=== PATIENT | female | born 1930 | race Caucasian/White ===

== ENCOUNTER → 2017-05-14 | Outpatient (CLI) | payer MEDICARE ==
[~2017-05-14] MED LIST: AMINOPHYLLINE 250 MG/10 ML VIAL. ONE; REGADENOSON 0.4 MG/5 ML DISP.SYRIN. IV ONE
--- NOTE | 2017-05-14 11:40 | PCVCIMAG ---
APPROVED REPORT Study performed: 05/14/2017 07:40:00 EXAM: Comprehensive 2D, Doppler, and color-flow Echocardiogram Patient Location: Echo lab Status: routine BSA: 1.63 HR: 71 bpmBP: 150/78 mmHg Rhythm: NSR Other Information Study Quality: Adequate Risk Factors: Cardiac Risk Factors: HTN Indications Dyspnea 2D Dimensions LVEF(%): 55.20 (>50%) IVSd: 6.47 (7-11mm) LVDd: 45.38 mm PWd: 7.90 (7-11mm) LVDs: 32.41 (25-40mm) Left Atrium: 29.22 (27-40mm) Aortic Root: 34.25 mm LV Single Plane 4CH: 60.87 % LV Single Plane 2CH: 63.59 %Servin's LVEF: 62.23 % Biplane EF: 61.5 % Volumes Left Atrial Volume (Systole) Single Plane 4CH: 48.38 mLSingle Plane 2CH: 59.61 mL LA ESV Index: 34.00 mL/m2 Aortic Valve AoV Peak Alberto.: 1.67 m/s AO Peak Gr.: 11.11 mmHgLVOT Max P.02 mmHg LVOT Max V: 1.32 m/s AI Vmax: 5.11 m/s AI [place]: 4.29 m/s2 AI PHT: 346.63 ms Mitral Valve E/A Ratio: 0.9 MV Decel. Time: 255.35 ms MV E Max Alberto.: 0.51 m/s MV A Alberto.: 0.60 m/s IVRT: 128.03 ms TDI E/Lateral E': 9.00E/Medial E': 8.00 Pulmonary Valve PV Peak Alberto.: 0.96 m/sPV Peak Gr.: 3.69 mmHg Pulmonary Vein P Vein S: 0.26 m/sP Vein A: 0.35 m/s P Vein D: 0.39 m/sP Vein A Dur.: 110.7 msec P Vein S/D Ratio: 0.67 Tricuspid Valve TR Peak Alberto.: 2.46 m/s TR Peak Gr.: 24.26 mmHg Left Ventricle The left ventricle is normal size. There is normal LV segmental wall motion. There is normal left ventricular wall thickness. Left ventricular systolic function is normal. The left ventricular ejection fraction is within the normal range. LVEF is 60-65%. Grade I - abnormal relaxation pattern. Right Ventricle The right ventricle is normal size. The right ventricular systolic function is normal. Atria The left atrium size is normal. The right atrium size is normal. Aortic Valve The aortic valve is normal in structure. Moderate aortic regurgitation. There is no aortic valvular stenosis. Mitral Valve The mitral valve is normal in structure. Mild mitral regurgitation. No evidence of mitral valve stenosis. Tricuspid Valve The tricuspid valve is normal in structure. Trace tricuspid regurgitation with PAP of 31 mmHg. Pulmonic Valve The pulmonary valve is normal in structure. Trace pulmonic valvular regurgitation. Great Vessels The aortic root is normal in size. IVC is normal in size and collapses with >50% inspiration Pericardium There is no pericardial effusion. <Conclusion> The left ventricle is normal size. Left ventricular systolic function is normal. Grade I - abnormal relaxation pattern. The right ventricle is normal size. The left atrium size is normal. Moderate aortic regurgitation. Mild mitral regurgitation. Trace tricuspid regurgitation with PAP of 31 mmHg.
--- NOTE | 2017-05-14 16:11 | PCVCIMAG ---
APPROVED REPORT Exam: Nuclear Stress Test Indication: Dyspnea, Abn EKG, Weakness Patient Location: Out-Patient Stress Nurse: Emilie Pino RN, Molly Veliz RN [place] Tech:Reuben LouieNICOLETCB Ht: 5 ft 3 in Wt: 133 lbs BSA: 1.63 m2 HR: 78 bpm BP: 124/92 mmHg BMI: 23.5 Rhythm: SR, PVC's Medical History Medical History: Age, HTN, Former Smoker Medications: No cardiac medications Allergies: Codeine, Vicodan Pretest Chest Pain Characteristics: No chest pain Exercise History: Sedentary Stress Test Details Stress Test: Pharmacologic stress testing performed using 0.4 mg of regadenoson per 5 mL given IV over 10 seconds. Reason for pharmacologic stress test: physical limitation. HR Resting HR: 78 bpmMax Heart Rate (APMHR): 135 bpm Max HR Achieved: 101 bpmTarget HR (85% APMHR): 114 bpm % of APMHR: 74 Recovery HR: 99 bpm BP Resting BP: 124/92 mmHg Max BP: 176/78 mmHg ECG Resting ECG: Sinus Rhythm Stress ECG: Sinus Rhythm ST Change: Non-ischemic Arrhythmia: VPC's Recovery ECG: Sinus Rhythm Clinical Reason for Termination: Completed protocol Stress Symptoms: Abdominal Pain, Dyspnea, Headache, Leg Fatigue, Nausea Symptoms resolved with caffeine. NM EXAM: Myocardial Perfusion REST/STRESS Imaging Protocol: Rest Tc-99m/Stress Tc-99m 1 day Resting Data Rest SPECT myocardial perfusion imaging was performed in supine position 45 minutes following the intravenous injection of 9.3 mCi of Tc-99m Sestamibi. Time of rest injection: 819 Date: 05/14/2017 Pharmacologic Stress Pharmacologic stress test was performed by injecting Regadenoson 0.4 mg IV push followed by the intravenous injection of 28.6 mCi of Tc-99m Sestamibi. Time of stress injection: 939 Date: 05/14/2017 The images were gated to evaluate regional wall motion and calculate left ventricular ejection fraction. Study Quality Study: Good Artifact: Mild Breast artifact Study Data Post stress, the left ventricular ejection was 77%.. SSS: 6 SRS: 4 SDS: 2 TID = 0.92. Perfusion There is a small area of mildly reduced uptake in the distal segment of the anterior wall which is seen on the stress images as well as the resting images. This area thickens and moves normally and is most consistent with attenuation artifact. Wall Motion Normal left ventricular wall motion. Nuclear Conclusion ECG Findings: non-ischemic Clinical Findings: non-diagnostic Nuclear Findings: negative for ischemia This study is of low probability for inducible ischemia or prior infarct. Normal global and segmental LV systolic function. Artifact: Mild Breast artifact
== END | disposition home or self-care (01) ==
LOC: PCVCIMAG 07:34
PROVIDERS: ATTEND Internal Medicine Cardiovascular Disease
DX: I08.3 Combined rheumatic disorders of mitral, aortic and tricuspid valves (principal); I10 Essential (primary) hypertension; R94.31 Abnormal electrocardiogram [ECG] [EKG]; K52.9 Noninfective gastroenteritis and colitis, unspecified; R10.9 Unspecified abdominal pain; I49.3 Ventricular premature depolarization; Z88.8 Allergy status to other drugs, medicaments and biological substances; Z88.5 Allergy status to narcotic agent; Z87.891 Personal history of nicotine dependence; Z96.611 Presence of right artificial shoulder joint
CPT/HCPCS: 78452; 93017; 93306; A9500; G0463; J0280; J2785